=== PATIENT | male | born 1980 | race American Indian/Alaskan Native ===

== ENCOUNTER 2022-10-24 18:55 | Emergency (ER) | payer BC ==
[~2022-10-24] VITALS: Ht 167.6 cm; Wt 68.0 kg
== END 2022-10-24 23:05 | disposition home or self-care (01) ==
LOC: ER 18:55
DX: S01.82XA Laceration with foreign body of other part of head, initial encounter (principal); W19.XXXA Unspecified fall, initial encounter; Y93.9 Activity, unspecified; Y92.9 Unspecified place or not applicable